=== PATIENT | female | born 1975 | race Two or more races ===

== ENCOUNTER 2024-01-08 22:14 | Emergency (ER) | payer OTHER ==
[~2024-01-08] VITALS: Ht 170.2 cm; Wt 90.9 kg
[2024-01-08] MEDS: ONDANSETRON ODT 4 MG TAB PO ONE (23:10)
[2024-01-08 23:14] VITALS: BP 102/73; PULSE 116; RESP 20; TEMP 97.4; O2SAT 96
[2024-01-08] MEDS: ONDANSETRON HCL 4 MG/2 ML VIAL IM ONE (23:14)
[2024-01-08 23:39] LABS: Hematocrit 50.8 % (36.0-46.0); Mean Corpuscular Hemoglobin 31.3 pg (28.0-32.0); Mean Corpuscular Hgb Conc. 33.5 g/dL (32.0-36.0); Mean Corpuscular Volume 93.2 fL (80.0-100.0); Red Blood Cells 5.45 10^6/uL (4.0-5.20); Red Cell Distribution Width 13.6 % (11.8-14.3)
[2024-01-08 23:43] LABS: Basophils % (manual) 0 (0.0-2.0); Blast Cells 0; Eosinophils % (manual) 0 (0-7); Metamyelocytes % 0; Myelocytes % 0; Promyelocytes % 0; Reactive Lymphocytes 0
[2024-01-08 23:46] LABS: Alanine Aminotransferase 39 U/L (7-40); Albumin 4.3 g/dL (3.2-4.8); Alkaline Phosphatase 98 U/L (46-116); Anion Gap 10 (5-15); Aspartate Aminotransferase 23 U/L (13-40); BUN/Creatinine Ratio 16.7 (10.0-20.0); Bilirubin, Total 0.8 mg/dL (0.2-1.0); Blood Urea Nitrogen 17 mg/dL (9-23); Calcium 9.8 mg/dL (8.7-10.4); Carbon Dioxide 19 mmol/L (20-30); Chloride 111 mmol/L (98-107); Glucose 212 mg/dL (74-106); Lipase 35 U/L (12-53); Potassium 4.1 mmol/L (3.5-5.1); Sodium 140 mmol/L (136-145); Total Protein 7.4 g/dL (5.7-8.2)
[2024-01-09 00:12] LABS: Band Neutrophils % (manual) 22; Lymphocytes % (manual) 11 (10.0-50.0); Monocytes % (manual) 4 (0-12); Platelet Estimate Adequate; RBC Morphology Normal
[2024-01-09] MEDS ORDERED: ZOFR4T PO (00:17)
[2024-01-09] MEDS ORDERED: DIPH2.5T73 PO (00:28)
== END 2024-01-09 00:34 | disposition home or self-care (01) ==
LOC: ER 22:14
DX: R10.84 Generalized abdominal pain (principal); R11.10 Vomiting, unspecified; Z90.49 Acquired absence of other specified parts of digestive tract; Z98.890 Other specified postprocedural states
CPT/HCPCS: 36415; 80053; 83690; 85007; 85027; 96372; 99283; J2405; Q0162